=== PATIENT | male | born 1980 | race Caucasian/White ===

== ENCOUNTER 2016-11-18 23:27 | Emergency (ER) | payer OTHER ==
[~2016-11-18] VITALS: Ht 170.2 cm; Wt 225.0 kg
[~2016-11-18 23:27] MED LIST: NAPR220C16 PO
[2016-11-18 23:38] VITALS: BP 153/94; PULSE 102; RESP 24; O2SAT 95
[2016-11-19] MEDS ORDERED: Ondansetron 2 mg/mL 2 mL Inj ONE (00:20)
--- NOTE | 2016-11-19 00:28 | ED.REPORT ---
HPI-Extremity Problem Lower Date of Service Nov 19, 2016 ED Provider: Brittney Guadarrama MD A 36 year old male with a history of cellulitis presents to the ED complaining of a cellulitis flare in the right lower extremity. This flare began yesterday evening and was accompanied by fevers and chills. The pt denies any recent trauma. The pt is complaining of pain radiating from the lower leg into the groin area. The pt gets flares of cellulitis fairly frequently which are treated with oral antibiotics. The pt's last flare was one year ago, for which he was admitted. Nursing Notes Stated Complaint: CELLULITIS Chief Complaint: Skin Rash/Abscess Nursing Notes Reviewed: Yes Allergies: Coded Allergies: No Known Allergies (Verified Allergy, Unknown, 03/21/16) Scheduled Clindamycin (Clindamycin) 300 Mg Capsule 300 MG PO QID Scheduled PRN Naproxen Sodium (Naproxen Sodium) 220 Mg Capsule 220 MG PO BID PRN PRN For Pain General Time Seen by MD: 00:20 Chief Complaint Other (RLE cellulitis) Hx Obtained From: Patient Arrived By: Walk-in Onset Occurred: 1 day ago Symptom Duration: Since onset Recent Healthcare: Recent doctor visit, Recent hospitalization Similar Sx Previous: Yes Past Medical History Past Medical History pancreatitis MRSA lower ext cellulitis Reports: Morbid Obesity Past Surgical History denies Smoking History Never Smoker Social History Alcohol Use: 1-3 per week Drug Use: Denies drug use Other Social History: Smokeless tobacco, , Local resident Ambulatory Status Independent Review of Systems Review of Systems Note: LLE cellulitis Constitutional: Reports: Chills, Fever Musculoskeletal: Reports: Extremity pain, Denies: Back pain Complete sys rev & neg: except as marked. Cardiovascular: Denies: Chest pain GI: Denies: Abdominal pain Physical Exam Initial Vital Signs Vital Signs (First) Date Time Temp Pulse Resp B/P Pulse Ox O2 Delivery O2 Flow Rate FiO2 11/18/16 23:38 37.8 102 24 153/94 95 11/19/16 02:34 Room Air Initial VS: Reviewed Lower Extremity / Pelvis / MS: Atraumatic, Full range of motion peau d'orange skin on back of right calf, tender to palpation, slightly hyperpigmented calves equal in size 2+ DP pulse sensation and motor intact Ankle / Foot: Atraumatic, Full range of motion General/Constitutional: Awake, Alert Appearance / Presentation: Positive: Obese, morbidly Respiratory / Chest: Atraumatic, Breath sounds NL, Breath sounds = bilat, No respiratory distress Cardiovascular: Heart rate NL, Regular rhythm, Heart sounds NL Skin: Atraumatic, No rash, Warm, Dry Neurologic: Oriented X3, Speech NL, No motor deficits, No sensory deficits Head / Eyes: Atraumatic, Normocephalic, PERRL, EOMI ENT: Atraumatic, Airway patent, Mucous membranes moist Neck: Atraumatic, Supple, Full range of motion Abdomen: Atraumatic, Soft, Non-tender Back: Atraumatic, Full range of motion Upper Extremity / MS: Atraumatic, Full range of motion Psychiatric: Affect NL, Mood NL Interpretation & Diagnostics Lab Results Interpretation Result Diagram: 11/19/16 0010 11/19/16 0010 Test 11/19/16 00:10 White Blood Count 7.4th/mm3 (3.8-10.1) Red Blood Count 4.56mil/mm3 (4.40-5.80) Hemoglobin 13.4g/dL (13.8-17.2) Hematocrit 41.3% (41.0-50.0) Mean Corpuscular Volume 90.6fL (81-100) Mean Corpuscular Hemoglobin 29.4pg (27.0-35.0) Mean Corpuscular Hemoglobin Concent 32.4% (32.0-37.0) Red Cell Distribution Width 14.6% (12.3-15.4) Platelet Count 194bil/L (150-400) Neutrophils (%) (Auto) 73.1% (40-74) Lymphocytes (%) (Auto) 17.4% (14-46) Monocytes (%) (Auto) 8.8% (4-12) Eosinophils (%) (Auto) 0.5% (0-5) Basophils (%) (Auto) 0.1% (0-3) Sodium Level 137mEq/L (134-144) Potassium Level 4.1mEq/L (3.5-5.2) Chloride Level 96mEq/L (97-108) Carbon Dioxide Level 30mmol/L (18-29) Blood Urea Nitrogen 14mg/dL (6-20) Creatinine 0.92mg/dL (0.76-1.27) Estimat Glomerular Filtration Rate 100mL/min (>59) Glucose Level 180mg/dL (60-99) Lactic Acid Level 1.5mmol/L (0.4-2.0) Calcium Level 8.8mg/dL (8.5-10.1) Magnesium Level 1.8mg/dL (1.6-2.6) Total Bilirubin 0.4mg/dL (0.0-1.2) Aspartate Amino Transf (AST/SGOT) 31U/L (0-50) Alanine Aminotransferase (ALT/SGPT) 55U/L (0-44) Alkaline Phosphatase 75U/L (25-150) Total Protein 7.0g/dL (6.4-8.4) Albumin 3.6g/dL (3.4-5.0) Re-Eval/Medical Decision Med Decision/Clinical Course 36-year-old male with no reported past medical history, though morbid obesity, here with right lower extremity pain consistent with previous episodes of cellulitis. Differential diagnosis includes but is not limited to cellulitis versus chronic venous stasis changes versus new onset diabetes versus DVT. At this time, his exam is not consistent with DVT, he has had multiple negative DVT workups, and I do not notice any swelling of his leg. His CBC is normal. CMP shows elevated blood glucose of 180, and elevated bicarbonate, otherwise unremarkable. I gave patient clindamycin in the emergency department, and seemed to go home with. I am treating him empirically as though he has cellulitis. He will follow up with his primary care physician and has been given very strict return precautions. Re-Evaluation/Progress : Time of Eval: 02:02 Patient Status: Condition improved Re-Evaluation/Progress Note: Pt rechecked, who is comfortable. He is informed of his diagnosis and the plan for discharge. The pt understands and agrees with the plan. All questions were addressed at this time. Counseled Regarding: Diagnosis, Need for follow-up, When/why to return to ED Discharge & Departure Impression: Primary Impression: Lower extremity pain Disposition: Home Discharge Condition All VS Reviewed: Yes Condition: Stable Patient Instructions: Cellulitis (ED) Additional Instructions: Thank you for entrusting us with your care. Take Clindamycin as prescribed. Follow up with your primary care physician regarding your blood sugar and blood pressure. Follow up with your primary care physician for further evaluation. Return to the emergency department if you develop any new or worsening symptoms. Referrals: Oziel Olivares MD (PCP) [facility] Attestation Portions of this note were transcribed by Davi Canales. I, Dr. Guadarrama personally performed the history, physical exam and medical decision-making; I reviewed and confirmed the accuracy of the information in the transcribed note. Signed by: Chip Fernandez, 11/19/2016 and 0239. copies to: Oziel Olivares MD, Rebecca A MD Nov 19, 2016 00:28 DAVI CANALES Nov 19, 2016 00:38
[2016-11-19 00:30] LABS: BASOPHILS % (AUTO) 0.1 % (0-3); EOSINOPHILS % (AUTO) 0.5 % (0-5); MONOCYTES % (AUTO) 8.8 % (4-12); Mean Corpuscular Hemoglobin 29.4 pg (27.0-35.0); Mean Corpuscular Volume 90.6 fL (81-100); NEUTROPHILS % (AUTO) 73.1 % (40-74); Platelet Count 194 bil/L (150-400)
[2016-11-19] MEDS ORDERED: 0.9% Sodium Chloride 1,000 ML IV ONE (00:40)
[2016-11-19] MEDS ORDERED: Clindamycin Inj 900 MG in IV Premix 1 EACH IV ONE (00:40)
[2016-11-19 01:13] LABS: Magnesium 1.8 mg/dL (1.6-2.6)
[2016-11-19] MEDS ORDERED: CLIN-78 PO (02:07)
[2016-11-19 02:34] VITALS: BP 126/79; PULSE 88; RESP 22; O2SAT 98
== END 2016-11-19 02:35 | disposition home or self-care (01) ==
LOC: SED 23:27
DX: M79.661 Pain in right lower leg (principal); F17.220 Nicotine dependence, chewing tobacco, uncomplicated; E66.01 Morbid (severe) obesity due to excess calories; Z68.45 Body mass index [BMI] 70 or greater, adult; Z86.14 Personal history of Methicillin resistant Staphylococcus aureus infection; Z87.19 Personal history of other diseases of the digestive system
CPT/HCPCS: 36415; 80053; 83605; 83735; 85025; 87040; 96361; 96365; 96375; 99284; J1885; J2405; J7030